=== PATIENT | male | born 1995 | race Caucasian/White ===

== ENCOUNTER 2025-03-01 10:07 | Outpatient (CLI) | payer MEDICAID, SELFPAY | END 2025-03-01 10:08 | disposition home or self-care (01) | LOC: NFLDREF 03-04 12:11 | PROVIDERS: PCP Family Medicine; Referring Provider Family Medicine; Visit Provider Family Medicine | DX: E78.5 Hyperlipidemia, unspecified (principal) | CPT/HCPCS: 80053; 80061 ==